=== PATIENT | female | born 1960 | race Caucasian/White ===

== ENCOUNTER → 2020-10-23 | Outpatient (CLI) | payer OTHER ==
[~2020-10-23] MED LIST: ASA81BEC PO; CELEXA 20 MG TA20 MG PO; DAIRY RELIE3000 UNIT PO; MAALOX ADVANCE1 EACH PO; PROTONIX40 M2 PO; ROSUVASTATIN CA20 MG PO; SLOW FE142 MG PO; SUPER THERAVIT1 EACH PO; TYLENOL325 M1 PO; VITAMIN D31250 MCG PO; VITAMIN E1000 UNIT PO
== END ==
LOC: SJCVCIMAG 09:45
PROVIDERS: ATTEND Internal Medicine Cardiovascular Disease
DX: I45.10 Unspecified right bundle-branch block (principal); I25.10 Atherosclerotic heart disease of native coronary artery without angina pectoris; R06.00 Dyspnea, unspecified; R53.83 Other fatigue; Z95.5 Presence of coronary angioplasty implant and graft

== ENCOUNTER → 2020-11-02 | Outpatient (CLI) | payer OTHER ==
[~2020-11-02] VITALS: Ht 162.6 cm; Wt 70.3 kg
[~2020-11-02] MED LIST changes: +BYSTOLIC 5 MG5 MG PO
[2020-11-02 07:13] VITALS: BP 146/51
[2020-11-02 07:33] LABS: HEMOGLOBIN 11.3 gm/dL (12.0-15.0); MCH 22.4 pg (26.0-34.0); MCHC 31.4 g/dL (28.0-37.0); MCV 71.1 fL (80.0-100.0); RBC 5.07 mil/uL (4.20-5.00); WBC 7.9 thou/uL (4.0-11.0)
[2020-11-02 08:02] LABS: CALCIUM 8.9 mg/dL (8.5-10.1); CREATININE 0.7 mg/dL (0.6-1.0)
--- NOTE | 2020-11-02 13:18 | EKG ---
[place] [address] [facility] [place] [address] ELECTROCARDIOGRAM REPORT Name: MILKA ALLEN Room #: REG [facility]#: [id number] Admission: 11/02/20 Attend Phys: Diaz Smith MD, Discharge: Date of : 58 Report #: [id number] [facility] Test Date: 2020-11-02 Test Time: 10:50:05 Pat Name: MILKA ALLEN Department: Room: Gender: F Transaction Manager: SHAI : 1960 Requested By: Diaz Smith Order Number: [id number] MD: Edgar Villatoro Measurements Intervals [place] Rate: 70 P: 67 WA: 181 QRS: 256 QRSD: 133 T: 0 QT: 429 QTc: 463 Interpretive Statements Sinus rhythm Probable left atrial enlargement LBBB Compared to ECG 02/16/2004 07:12:08 Intraventricular conduction delay now present Ventricular premature complex(es) no longer present Electronically Signed On 11-02-2020 13:18:33 CDT by Edgar Villatoro [email or web address] <ELECTRONICALLY SIGNED> By: Edgar Villatoro MD, [facility] 11/02/20 1318 1050 1050 Edgar Villatoro MD, FAC /EPI
--- NOTE | 2020-11-02 17:33 | CATHLAB ---
[facility] Letitia [place] [address] INVASIVE PROCEDURE REPORT Name: MILKA ALLEN Room #: REG ELADIO EscobedoAshvin#: [id number] Admission: 11/02/20 Attend Phys: Diaz Smith MD, Discharge: Date of : 58 Report #: [id number] THIS REPORT FOR: cc: FAM - Family physician unknown NO FAMILY PHYSICIAN or PCP Diaz Smith MD [facility] ~ APPROVED REPORT Study performed: 11/02/2020 07:54:31 Patient Details Patient Status: Out-Patient Room #: The patient is a 60 year-old female Event Personnel Diaz Smith Vision Teacher, Paula Moss RTR Monitor, Leslie Archer RTR, [place] Geiger Dexter RN RN, Nioc Torres RTR Certified Corporate Travel Executive Procedures Performed Art Access - R femoral artery* Left Heart Cath w/or w/o Coronaries [id number] [facility] Aortogram Abdominal Peripheral Angio 072496 Hemostasis w/ Mynx 98080 Initial Mod Sed Same Phys/QHP Gr5y 285490 22001 Mod Sed Same Phys/QHP Ea 289958 Procedure Narrative The Right Groin^ was infiltrated with 1% Lidocaine subcutaneous anesthesia. A PINNACLE 6FR Sheath #[id number] sheath was inserted into the RFA^. Coronary angiography was performed using coronary diagnostic catheters. The right coronary system was accessed and visualized with a JR4 catheter. The left coronary system was accessed and visualized with a JL4 catheter. The left ventricle was accessed and visualized with a PIGTAIL catheter. Left ventriculogram was performed in 30 degree projection. An aortogram of the abdominal aorta was performed. Closure device was deployed with a Fr MYNXGRIP 6/7F #[id number]. The patient tolerated the procedure well and there were no complications associated with the procedure. There was no hematoma. Intraoperative Conscious Sedation Sedation start time: 9:12 Case end Time: 10:14 Fentanyl 50 mcg Versed 1.5 mg [facility] [address] [place] [address] INVASIVE PROCEDURE REPORT Name: MILKA ALLEN Room #: [facility]#: [id number] Admission: 11/02/20 Attend Phys: Diaz Smith, Discharge: Date of : 58 Report #: [id number] Fluoro Time: 13.00 minutes Dose: DAP 12713.20 cGycm2 1670 mGy Contrast Type and Amount: Omnipaque 145 ml Hemodynamics The aortic pressure is 165/71 mmHg with a mean of 118 mmHg. The left ventricular pressure is 141/9 mmHg with a mean of mmHg. The left ventricular end diastolic pressure is 22 mmHg. PCI Technique Lesion Percutaneous coronary intervention was performed on the mid right coronary artery. A LAUNCHER 6FR JR 4 #[id number] Guide Catheter was used to engage the ostium. A Luge Wire .014 x 182CM #[id number] Interventional Guidewire was used to cross the lesion. COMMENTS Attempts to cross the lesion with the luge wire were unsuccessful. Conclusion #1. 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 #2 left main large and free of disease giving rise to LAD and circumflex. #3 LAD is widely patent no occlusive disease some faint collateral filling via the septals to the inferior wall. #4 circumflex OM large but nondominant some filling of the inferior wall no occlusive disease #5 normal left jugular size systolic function near normal limited inferior basilar hypokinesis. #6 abdominal aortogram revealing abdominal aorta intact no aneurysm. Recommendations and plan: Continue aggressive risk factor modifications we'll add beta-gabriel for cardioprotection. This previously placed RCA stent 2003. I suspect this chronic total occlusion could be quite old there is been no recent progression of her symptoms but abnormal stress test. Was lost to follow for approximately 10 years from stress testing. We'll follow-up 1 month in the office. Could consider possible intervention for chronic total occlusion although not definite of benefit. <ELECTRONICALLY SIGNED> By: Diaz Smith MD, FACC 11/02/20 173 32 32 Diaz Smith MD, FACC /INF
== END | disposition home or self-care (01) ==
LOC: CATH 06:26
PROVIDERS: ATTEND Internal Medicine Cardiovascular Disease
DX: I25.10 Atherosclerotic heart disease of native coronary artery without angina pectoris (principal); I25.82 Chronic total occlusion of coronary artery; I10 Essential (primary) hypertension; E78.5 Hyperlipidemia, unspecified; D64.9 Anemia, unspecified; K21.9 Gastro-esophageal reflux disease without esophagitis; Z98.890 Other specified postprocedural states; Z79.899 Other long term (current) drug therapy; Z79.82 Long term (current) use of aspirin; Z90.710 Acquired absence of both cervix and uterus; Z90.49 Acquired absence of other specified parts of digestive tract; Z88.8 Allergy status to other drugs, medicaments and biological substances